=== PATIENT | female | born 1980 | race Two or more races ===

== ENCOUNTER 2018-04-17 06:17 | Day surgery (SDC) | payer BC, SELFPAY ==
[~2018-04-17] VITALS: Ht 160 cm; Wt 52.6 kg
[2018-04-17] VITALS (8 sets, daily range): BP systolic 101–146; BP diastolic 67–89
[~2018-04-17 06:17] MED LIST: ARMOUR THYROID90 MG PO; LIOTHYRONINE S25 MCG PO
[2018-04-17] MEDS ORDERED: Bacitracin 50000 Units Vial ONE (07:13)
[2018-04-17] MEDS ORDERED: Bacitracin Oint 15gm Tube TOPIC ONE (07:13)
[2018-04-17] MEDS ORDERED: Lidocaine 1% 10mg/ml/Epi 0.005mg/ml 30ml vial INJ ONE (07:13)
--- NOTE | 2018-04-17 07:20 | Anethesia Preoperative Eval ---
Anesthesia Pre-op PMH/ROS General Date of Evaluation: Apr 17, 2018 Time of Evaluation: 07:20 ASA Score: ASA 1 Mallampati Score Class I : Soft palate, uvula, fauces, pillars visible Class II: Soft palate, uvula, fauces visible Class III: Soft palate, base of uvula visible Class IV: Only hard plate visible Mallampati Classification: Class I Allergies: Coded Allergies: No Known Allergies (Unverified , 04/17/18) Anesthesia Pre-op Phys. Exam Physician Exam Last Vital Signs Date Time Temp Pulse Resp B/P (MAP) Pulse Ox O2 Delivery O2 Flow Rate FiO2 04/17/18 06:46 97.0 53 18 108/67 (81) 98 97.0 04/17/18 06:44 Room Air Airway Exam Mallampati Score: Class I Anesthesia Pre-op A/P Labs Urine Test Test 04/17/18 06:05 Urine HCG, Qualitative Negative (NEGATIVE) Camille Cazares MD Apr 17, 2018 07:20
[2018-04-17] MEDS ORDERED: fentaNYL 100 mcg/2 mL IV PRN (07:30)
[2018-04-17] MEDS ORDERED: Sterile Water For Irrig 2000ml IRRIG ONE (07:30)
[2018-04-17] MEDS ORDERED: Ketorolac 30mg Inj IV PRN (07:30)
[2018-04-17] MEDS ORDERED: LR 1000ml ONE (07:30)
[2018-04-17] MEDS ORDERED: Lidocaine 1% Plain 30 ml INJ ONE ×4 (07:32→09:26)
[2018-04-17] MEDS ORDERED: EPINEPHrine 1mg/1ml Amp ONE ×2 (07:32→07:33)
--- NOTE | 2018-04-17 07:34 | Pre-Procedure Note/Attestation ---
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 I attest that, if there was a reasonable possibility of needing a blood transfusion, the patient (or the patient's legal new accounts banking representative) was given the [place] [facility] [employer] [facility] standardized written summary, pursuant to the Gallito Wever Blood Safety Act ([place] Health and Safety Code # 1645, as amended). I attest that I re-evaluated the patient just prior to the surgery and that there has been no change in the patient's H&P, except as documented below: KHARI MCKINNEY M.D. Apr 17, 2018 07:34
[2018-04-17] MEDS ORDERED: Propofol 200mg/20ml IV ONE (07:43)
[2018-04-17] MEDS ORDERED: fentaNYL 100 mcg/2 mL IV ONE ×2 (07:43→09:24)
[2018-04-17] MEDS ORDERED: Lidocaine 1% MPF 10mg/ml 5ml ONE (07:43)
[2018-04-17] MEDS ORDERED: NS Irrig 1000ml IRRIG ONE ×2 (09:22→09:27)
[2018-04-17] MEDS ORDERED: NS 110ml IVPB ONE (09:23)
--- NOTE | 2018-04-17 11:10 | Immediate Post-Op Evaluation ---
Immediate Post-Op Evalulation Immediate Post-Op Evalulation Procedure: bi breast implant removal and fat transplant Date of Evaluation: Apr 17, 2018 Time of Evaluation: 11:10 Nausea: No Vomiting: No Camille Cazares MD Apr 17, 2018 11:10
[2018-04-17] MEDS ORDERED: Norco 5mg/325mg tab ONE (12:37)
[2018-04-17] MEDS ORDERED: Norco 5mg/325mg tab ORAL SCH (12:45)
--- NOTE | 2018-04-17 22:30 | Operative Note - Dictated ---
DATE OF OPERATION: 04/17/2018 PREOPERATIVE DIAGNOSES: 1. Exposed right breast implant with drainage. 2. Intractable pain in the left breast with severe De León grade 4 capsular contracture. POSTOPERATIVE DIAGNOSES: 1. Exposed right breast implant with drainage. 2. Intractable pain in the left breast with severe De León grade 4 capsular contracture. PROCEDURES: 1. Bilateral breast implant removal. 2. Internal breast lift. 3. Right breast inframammary vertical lift revision. 4. Autologous fat transfer to the inferior pole of the breasts, left greater than right. SURGEON: Wang Rutherford M.D. ANESTHESIA: General endotracheal anesthesia. PROCEDURE IN DETAIL: After consent was obtained, the patient was taken to the operating room and placed supine on the table. Adequate general anesthesia was established and the area of the breast was infiltrated with 1% lidocaine with epinephrine x10 mL total in the areas of proposed incisions. The flanks and inner thighs were infiltrated with tumescent solution symmetrically and a total of 1 liter was used. This tumescent solution consisted of 1 liter of normal saline combined with 50 mL of 1% plain lidocaine and 1 ampule of 1:100,000 epinephrine. After sterile prepping and draping of the entire torso and legs down to the knees, the right breast was operated on first by reopening the inframammary incision. The implant was removed and found to be intact. There was no obvious sign of infection, but some bacterial contamination likely since there was exposure and drainage. The wound was therefore copiously irrigated with antibiotic-containing solution and the capsule, which was De León grade 1 to 2 was thoroughly cauterized and capsulotomized. The patient was sat upright and the decision was made at this point to excise and plicate the vertical scar of the inframammary incision to lift the breast up slightly. The left breast was then operated on by reincising the inferior periareolar incision and dissecting down to the implant. A De León grade 4 capsule was found here and a partial capsulectomy was done posterior to the nipple-areolar complex and in the anterior portion of the capsule, which was thicker. The capsule was then cauterized and capsulotomized to provide for anterior internal mastopexy once the patient's wound was closed. The incisions were then all closed using a deep layer of 2-0 PDS, followed by 3-0 Monocryl and 5-0 Prolene with the breast tissue elevated upward on top of the pectoralis major muscle and position slightly higher. The autologous fat was then harvested and 200 mL was injected total with 125 mL injected into the left breast and 75 mL injected into the right breast, both in the inferior pole. A relatively symmetric cosmetic appearance was established and then the breasts were wrapped with bias Kerlix and bias wrap and also sponge and instrument counts were correct at the end the procedure. The patient was taken to recovery in excellent condition postoperatively. Wang Rutherford DR: MALU JOB#: [id number] CC:
== END 2018-04-17 13:45 | disposition home or self-care (01) ==
LOC: SUR 06:17
DX: T85.898A Other specified complication of other internal prosthetic devices, implants and grafts, initial encounter (principal); T85.44XA Capsular contracture of breast implant, initial encounter; Y83.8 Other surgical procedures as the cause of abnormal reaction of the patient, or of later complication, without mention of misadventure at the time of the procedure; Y92.009 Unspecified place in unspecified non-institutional (private) residence as the place of occurrence of the external cause; E03.9 Hypothyroidism, unspecified
CPT/HCPCS: 19316; 19328; 19366; 81025; J0171; J0690; J2001; J2704; J3010; J7120; 94003; 94150